=== PATIENT | female | born 1995 | race Caucasian/White ===

== ENCOUNTER 2023-05-10 11:31 | Emergency (ER) | payer MEDICAID ==
[~2023-05-10] VITALS: Ht 167.6 cm; Wt 73.0 kg
[2023-05-10 11:41] VITALS: O2SAT 100
[2023-05-10 12:25] VITALS: TEMP 98.6
[2023-05-10] MEDS: FAMOTIDINE 20MG/2ML VIAL IV ONE (12:34)
[2023-05-10] MEDS: METHYLPREDNISOLONE SOD SUCC 125MG/2ML (ACT-O-VIAL) IV ONE (12:34)
[2023-05-10] MEDS: ONDANSETRON HCL 4MG/2ML INJ IV ONE (12:34)
[2023-05-10 12:36] LABS: BASOPHILS % 0.7 % (0.0-2.0); EOSINOPHILS % 1.2 % (0.0-5.0); HEMATOCRIT. 36.1 % (36.0-48.0); LYMPHOCYTES % 28.7 % (20.0-50.0); MEAN CORPUSCULAR HEMOGLOBIN 29.9 pg (28.0-32.0); MEAN CORPUSCULAR HGB CONC 33.2 g/dL (31.0-37.0); MEAN CORPUSCULAR VOLUME 90.2 fL (81.0-99.0); MEAN PLATELET VOLUME 9.7 fl (7.4-10.4); NEUTROPHILS % 63.4 % (40.0-76.0); PLATELET 234 x1000/uL (130-400); RED BLOOD CELL COUNT 4.01 mill/uL (4.2-5.4); WHITE BLOOD COUNT 9.8 x1000/uL (4.5-11.0)
[2023-05-10 12:44] LABS: ALANINE AMINOTRANSFERASE 21 IU/L (10-49); ALBUMIN 4.3 g/dL (3.2-4.8); ASPARTATE AMINOTRANSFERASE 19 IU/L (<34); BILIRUBIN TOTAL 0.3 mg/dL (0.1-1.0); CALCIUM 8.5 mg/dL (8.7-10.4); CARBON DIOXIDE 24 mEq/L (21-32); CHLORIDE 106 mEq/L (98-107); CREATININE 0.8 mg/dL (0.6-1.0); GLUCOSE 153 mg/dL (70-105); POTASSIUM 3.5 mEq/L (3.5-5.1); PROTEIN TOTAL 6.6 g/dL (6.0-8.3); SODIUM 138 mEq/L (136-145); UREA NITROGEN BLOOD 10 mg/dL (9-23)
[2023-05-10] MEDS ORDERED: B50 PO (13:20)
[2023-05-10] MEDS ORDERED: EPIN0.3P3 IM (13:20)
[2023-05-10] MEDS ORDERED: P50 PO (13:20)
[2023-05-10 14:02] VITALS: BP 97/61; PULSE 84; RESP 16
== END 2023-05-10 14:29 | disposition home or self-care (01) ==
LOC: ER 11:31
DX: T78.1XXA Other adverse food reactions, not elsewhere classified, initial encounter (principal); Z91.013 Allergy to seafood; X58.XXXA Exposure to other specified factors, initial encounter
CPT/HCPCS: 99284; 96374; 71045; 96375; 80053; 85025; 36415; J3490; J2930; J2405